=== PATIENT | female | born 1990 | race Hispanic/Latino ===

== ENCOUNTER 2022-08-09 12:46 | Emergency (ER) | payer BC ==
--- OUTSIDE RECORDS SUMMARY | 2022-08-09 12:49 | XMS REPORT | Continuity of Care Document ---
:1990 Author Organization [facility] t Address [address] [place] [place] [address] Care Team Providers Name Role Phone Asked, No Pcp Primary Care Physician Unavailable GC_CCOB_Khan_M Attending Clinician Unavailable MIREYA DUVAL Attending Clinician Unavailable Mireya Kim Attending Clinician MAYELA RAMOS Attending Clinician Unavailable Only, Ang Db Test Attending Clinician Unavailable Mayela Singer Attending Clinician EbrahiBrenda Da Silva Attending Clinician Doctor Unassigned, [place] Attending Clinician Unavailable RADHIKA BURLESON Attending Clinician Unavailable Freedom Connolly Attending Clinician Radhika Burleson MD Attending Clinician SHYANN AWAD Attending Clinician Unavailable Nurse, Pcp Immunization Attending Clinician Unavailable Steve Pacheco DO Attending Clinician STEVE PACHECO Attending Clinician Unavailable EBONY BRITTON Attending Clinician Unavailable BRAEDEN BE Attending Clinician Unavailable STANLEY COLLINS Attending Clinician Unavailable CHEPE CHAVEZ Attending Clinician Unavailable CHENG DE LA CRUZ Attending Clinician Unavailable FEMI POLLARD Attending Clinician Unavailable FRANCO DIAZ Attending Clinician Unavailable MARY LONGO Attending Clinician Unavailable UNKNOWN, ATTENDING Attending Clinician Unavailable GC_CCOB_Khan_M Admitting Clinician Unavailable Payers Payer Name Policy Type Policy Number Effective Date Expiration Date Ashvin campos [place] [id number] 2018 [place] (PP[place] 00:00:00 BCBS OF [id number] 2018 EMPLOYEE PLAN 00:00:00 Problems Condition Condition Condition Status Onset Resolution Last Treating Co mments Source Name Details Category Date Date Treatment Clinician Date No known No known Disease Unive rs active active ity of problems problems [facility] Allergies, Adverse Reactions, Alerts Allergy Allergy Status Severity Reaction(s) Onset Inactive Treating Comm ents Source Name Type Date Date Clinician PENICILL Drug Active Hives 2019-07 Univers INS Class 2-10 ity of 00:00: [place] 00 Medical [place] Penicill Propensi Active Hives 2019-07 Univer s ins ty to 2-10 ity of adverse 00:00: [place] reaction 00 Medical s Branch Penicill Propensi Active Hives 2019-07 Method i ins ty to 2-10 st adverse 00:00: [facility]osp[facility] reaction 00 l s to drug Penicill Propensi Active Hives 2019-07 Method i ins ty to 2-10 st adverse 00:00: [facility]ospita reaction 00 l s to drug Pen[place] Propensi Active Rash 2017-07 Hives Univer s in ty to -02 ity of adverse 00:00: [place] reaction 00 Medical s Branch PENICILL DRUG Active Med Rash 2017-07 Univers IN INGREDI 02 ity of 00:00: [place] 00 Medical Branch Family History Family Member Diagnosis Comments Start Date Stop Date Source Natural mother No Known Problems Met [facility] Natural father No Known Problems Met [facility] Social History Social Habit Start Date Stop Date Quantity Comments Source History SDOH University o f Alcohol Frequency [place] [facility] History SDOH University o f Alcohol Std [place] [facility] Drinks [facility] History SDOH University o f Alcohol Binge [place] [facility] Exposure to 2022-02-28 2022-03-10 Not sure University of SARS-CoV-2 00:00:00 15:35:00 [place] [facility] (event) Branch Alcohol intake 2020-06-12 2020-06-12 Current drinker [facility] dist 00:00:00 00:00:00 of alcohol Hospital (finding) Tobacco use and 2018-05-05 2018-05-05 Smokeless tobacco Un iversity of exposure 00:00:00 00:00:00 non-user [facility] Alcohol Comment 2018-05-05 2018-05-05 Socially Universit y of 00:00:00 00:00:00 [facility] Sex [birth year] At [birth year] [facility] 00:00:00 00:00:00 Hospital Smoking Status Start Date Stop Date Source Never smoked tobacco [facility] Medications Ordered Filled Start Stop Current Ordering Indication Dosage Frequency Signature Comments Components Source Medication Medication Date Date Medication? Clinician (SIG) Name Name doxycycline 2021- No [id number] 100mg Take 1 Univers hyclate 100 3-31 04-11 tablet by it y of mg tablet 00:00[place] 04:59 [place] (two[place] Medical times Branch daily for 10 days. acetaminoph 2021- No 650mg 650 mg, U nivers en 1-25 01-25 Oral, ity of (TYLENOL) 05:45: 05:51 ONCE, 1 [place] tablet 650 00 :00 dose, On Medic al mg Mon Branch 07/27/21 at 2345, KVNG traMADoL Yes [id number] 50mg Take 1 Univers (ULTRAM) 50 1-25 tablet by ity of mg tablet 00:00: mouth [place] 00 every 6 Medical (six) Branch hours as needed for Pain (scale 7-10). Indication s: acute pain ondansetron Yes [id number] 4mg Take 1 Univers (ZOFRAN) 4 1-25 tablet by ity of mg tablet 00:00: mouth [place] 00 every 8 Medical (eight) Branch hours as needed for Nausea and Vomiting (N/V). ketorolac Yes [id number] 10mg Take 1 U nivers 10 mg 1-25 tablet by ity of tablet 00:00: mouth [place] 00 every 6 Medical (six) Branch hours as needed for Pain (scale 7-10). traMADoL 0 Yes [id number] 50mg Take 1 Univers (ULTRAM) 50 1-25 tablet by ity of mg tablet 00:00: mouth [place] 00 every 6 Medical (six) Branch hours as needed for Pain (scale 7-10). Indication s: acute pain ondansetron 2022-0 Yes [id number] 4mg Take 1 Univers (ZOFRAN) 4 1-25 tablet by ity of mg tablet 00:00: mouth [place] 00 every 8 Medical (eight) Branch hours as needed for Nausea and Vomiting (N/V). ketorolac 2022-0 Yes [id number] 10mg Take 1 U nivers 10 mg 1-25 tablet by ity of tablet 00:00: mouth [place] 00 every 6 Medical (six) Branch hours as needed for Pain (scale 7-10). traMADoL 2022-0 Yes [id number] 50mg Take 1 Univers (ULTRAM) 50 1-25 tablet by ity of mg tablet 00:00: mouth [place] 00 every 6 Medical (six) Branch hours as needed for Pain (scale 7-10). Indication s: acute pain ondansetron 2-0 Yes [id number] 4mg Take 1 Univers (ZOFRAN) 4 1-25 tablet by ity of mg tablet 00:00: mouth [place] 00 every 8 Medical (eight) Branch hours as needed for Nausea and Vomiting (N/V). ketorolac 2022-0 Yes [id number] 10mg Take 1 U nivers 10 mg 1-25 tablet by ity of tablet 00:00: mouth [place] 00 every 6 Medical (six) Branch hours as needed for Pain (scale 7-10). traMADoL 2-0 Yes [id number] 50mg Take 1 Univers (ULTRAM) 50 1-25 tablet by ity of mg tablet 00:00: mouth [place] 00 every 6 Medical (six) Branch hours as needed for Pain (scale 7-10). Indication s: acute pain ondansetron 2022-0 Yes [id number] 4mg Take 1 Univers (ZOFRAN) 4 1-25 tablet by ity of mg tablet 00:00: mouth [place] 00 every 8 Medical (eight) Branch hours as needed for Nausea and Vomiting (N/V). ketorolac 2022-0 Yes [id number] 10mg Take 1 U nivers 10 mg 1-25 tablet by ity of tablet 00:00: mouth [place] 00 every 6 Medical (six) Branch hours as needed for Pain (scale 7-10). traMADoL 2022-0 Yes [id number] 50mg Take 1 Univers (ULTRAM) 50 1-25 tablet by ity of mg tablet 00:00: mouth [place] 00 every 6 Medical (six) Branch hours as needed for Pain (scale 7-10). Indication s: acute pain ondansetron 2022-0 Yes [id number] 4mg Take 1 Univers (ZOFRAN) 4 1-25 tablet by ity of mg tablet 00:00: mouth [place] 00 every 8 Medical (eight) Branch hours as needed for Nausea and Vomiting (N/V). ketorolac 2022-0 Yes [id number] 10mg Take 1 U nivers 10 mg 1-25 tablet by ity of tablet 00:00: mouth [place] 00 every 6 Medical (six) Branch hours as needed for Pain (scale 7-10). traMADoL 2022-0 Yes [id number] 50mg Take 1 Univers (ULTRAM) 50 1-25 tablet by ity of mg tablet 00:00: mouth [place] 00 every 6 Medical (six) Branch hours as needed for Pain (scale 7-10). Indication s: acute pain ondansetron 2022-0 Yes [id number] 4mg Take 1 Univers (ZOFRAN) 4 1-25 tablet by ity of mg tablet 00:00: mouth [place] 00 every 8 Medical (eight) Branch hours as needed for Nausea and Vomiting (N/V). ketorolac 2022-0 Yes [id number] 10mg Take 1 U nivers 10 mg 1-25 tablet by ity of tablet 00:00: mouth [place] 00 every 6 Medical (six) Branch hours as needed for Pain (scale 7-10). medroxyprog 2022-0 Yes Take by Uni vers esterone 1-24 mouth. ity of acetate 23:41: [place] (PROVERA 44 Medical ORAL) Branch medroxyprog 2022-0 Yes Take by Uni vers esterone 1-24 mouth. ity of acetate 23:41: [place] (PROVERA 44 Medical ORAL) Branch medroxyprog 2022-0 Yes Take by Uni vers esterone 1-24 mouth. ity of acetate 23:41: [place] (PROVERA 44 Medical ORAL) Branch medroxyprog 2022-0 Yes Take by Uni vers esterone 1-24 mouth. ity of acetate 23:41: [place] (PROVERA 44 Medical ORAL) Branch medroxyprog 2022-0 Yes Take by Uni vers esterone 1-24 mouth. ity of acetate 23:41: [place] (PROVERA 44 Medical ORAL) Branch medroxyprog Yes Take by Uni vers esterone 1-24 mouth. ity of acetate 23:41: [place] (PROVERA 44 Medical ORAL) Branch metFORMIN 2021- No 500mg Take 500 Un terry 500 mg 24 1-24 01-24 mg by ity of hr tablet 23:41: 00:00 mouth 2 [place] 42 :[place] (two) Medical times Branch daily with meals. ibuprofen Yes TAKE ONE Univ ers 600 mg 6-11 (1) ity of tablet 00:00: TABLET(S) [place] 00 BY MOUTH Medical FOUR TIMES Branch A DAY NEEDED FOR PAIN. ibuprofen Yes TAKE ONE Univ ers 600 mg 6-11 (1) ity of tablet 00:00: TABLET(S) [place] 00 BY MOUTH Medical FOUR TIMES Branch A DAY NEEDED FOR PAIN. ibuprofen 2021- No TAKE ONE Uni vers 600 mg 6-11 -24 (1) ity of tablet 00:00: 00:00 TABLET(S) [place] 00 :00 BY MOUTH Medical FOUR TIMES Branch A DAY NEEDED FOR PAIN. LIDOCAINE Yes TAKE FIVE Uni vers VISCOUS 2 % 6-10 (5) ML(S) ity of solution 00:00: BY MOUTH [place] 00 EVERY SIX Medical HOURS Branch NEEDED. LIDOCAINE Yes TAKE FIVE Uni vers VISCOUS 2 % 6-10 (5) ML(S) ity of solution 00:00: BY MOUTH [place] 00 EVERY SIX Medical HOURS Branch NEEDED. LIDOCAINE 2021- No TAKE FIVE Un terry VISCOUS 2 % 6-10 01-24 (5) ML(S) it y of solution 00:00: 00:00 BY MOUTH [place] 00 :00 EVERY SIX Medical HOURS Branch NEEDED. metFORMIN 2019-07 Yes TAKE FOUR Met hodi XR 2-09 (4) st (GLUCOPHAGE 00:00: TABLET(S) H ospita -XR) 500 mg 00 BY MOUTH l 24 hr ONCE A DAY tablet WITH THE EVENING MEAL. metFORMIN 2019-07 Yes TAKE FOUR Met hodi XR 2-09 (4) st (GLUCOPHAGE 00:00: TABLET(S) H ospita -XR) 500 mg 00 BY MOUTH l 24 hr ONCE A DAY tablet WITH THE EVENING MEAL. sumatriptan 2020-0 Yes [id number] 100mg Take 1 Univers (IMITREX) 5-10 tablet by ity o f 100 mg 00:00: mouth as [place] tablet 00 needed for Medical Migraine. Branch meclizine 2020-0 Yes [id number] 32mg Take 1 U nivers 25 mg 5-10 tablet by ity of tablet 00:00: mouth 3 [place] 00 (three) Medical times Branch daily as needed for Dizziness. sumatriptan 2020-0 Yes [id number] 100mg Take 1 Univers (IMITREX) 5-10 tablet by ity o f 100 mg 00:00: mouth as [place] tablet 00 needed for Medical Migraine. Branch meclizine 2020-0 Yes [id number] 32mg Take 1 U nivers 25 mg 5-10 tablet by ity of tablet 00:00: mouth 3 [place] 00 (three) Medical times Branch daily as needed for Dizziness. sumatriptan 2019-0 2021- No [id number] 100mg Take 1 Univers (IMITREX) 5-10 01-24 tablet by ity of 100 mg 00:00: 00:00 mouth as [place] tablet 00 :00 needed for Medical Migraine. Branch meclizine 2019-0 2021- No [id number] 32mg Take 1 Univers 25 mg 5-10 01-24 tablet by ity of tablet 00:00: 00:00 mouth 3 [place] 00 :00 (three) Medical times Branch daily as needed for Dizziness. metFORMIN 2019-0 Yes 500mg Take 500 Uni vers 500 mg 24 6-04 mg by ity of hr tablet 18:32: mouth 2 [place] [id number] (two) Medical times Branch daily with meals. medroxyprog 2019-0 Yes Take by Uni vers esterone 6-04 mouth. ity of acetate 18:32: [place] (PROVERA 12 Medical ORAL) Branch metFORMIN 2019-0 Yes 500mg Take 500 Uni vers 500 mg 24 6-04 mg by ity of hr tablet 13:32: mouth 2 [place] 12 (two) Medical times Branch daily with meals. medroxyprog 2019-0 Yes Take by Uni vers esterone 6-04 mouth. ity of acetate 13:32: [place] (PROVERA 12 Medical ORAL) Branch azithromyci 2019-0 Yes [id number] 250mg Take 1 Univers n 250 mg 6-04 tablet by ity of tablet 00:00: mouth [place] 00 daily. Medical Take 500 Branch mg day 1, then 250 mg days 2 to 5. bromphenira Yes [id number] 5mL Take 5 mL Univers mine-pseudo 6-04 by mouth 4 it y of ephedrine-D 00:00: (four) [place] M (BROMFED 00 times Medical DM) 2-30-10 daily as Bran ch mg/5 mL needed for syrup Cold symptoms or Cough. azithromyci Yes [id number] 250mg Take 1 Univers n 250 mg 6-04 tablet by ity of tablet 00:00: mouth [place] 00 daily. Medical Take 500 Branch mg day 1, then 250 mg days 2 to 5. bromphenira Yes [id number] 5mL Take 5 mL Univers mine-pseudo 6-04 by mouth 4 it y of ephedrine-D 00:00: (four) [place] M (BROMFED 00 times Medical DM) 2-30-10 daily as Bran ch mg/5 mL needed for syrup Cold symptoms or Cough. azithromyci 2021- No [id number] 250mg Take 1 Univers n 250 mg 6-04 -24 tablet by ity o f tablet 00:00: 00:00 mouth [place] 00 :00 daily. Medical Take 500 Branch mg day 1, then 250 mg days 2 to 5. bromphenira 2021- No [id number] 5mL Take 5 mL Univers mine-pseudo 6-04 -24 by mouth 4 i ty of ephedrine-D 00:00: 00:00 (four) [place] M (BROMFED 00 :00 times Medical DM) 2-30-10 daily as Bran ch mg/5 mL needed for syrup Cold symptoms or Cough. Immunizations Ordered Filled Immunization Date Status Comments [facility] e Immunization Name Name SARS-COV-2 COVID-19 2021-03-05 Completed Unive rsity of PFIZER VACCINE 00:00:00 [facility] SARS-COV-2 COVID-19 2021-03-05 Completed Unive rsity of PFIZER VACCINE 00:00:00 [facility] SARS-COV-2 COVID-19 2021-03-05 Completed Unive rsity of PFIZER VACCINE 00:00:00 [facility] SARS-COV-2 COVID-19 2021-03-05 Completed Unive rsity of PFIZER VACCINE 00:00:00 [facility] SARS-COV-2 COVID-19 2021-03-05 Completed Unive rsity of PFIZER VACCINE 00:00:00 [facility] SARS-COV-2 COVID-19 2021-03-05 Completed Unive rsity of PFIZER VACCINE 00:00:00 [facility] SARS-COV-2 COVID-19 2021-03-05 Completed Unive rsity of PFIZER VACCINE 00:00:00 [facility] SARS-COV-2 COVID-19 2021-03-05 Completed Unive rsity of PFIZER VACCINE 00:00:00 [facility] SARS-COV-2 COVID-19 2021-02-06 Completed Unive rsity of PFIZER VACCINE 00:00:00 [facility] SARS-COV-2 COVID-19 2021-02-06 Completed Unive rsity of PFIZER VACCINE 00:00:00 [facility] SARS-COV-2 COVID-19 2021-02-06 Completed Unive rsity of PFIZER VACCINE 00:00:00 [facility] SARS-COV-2 COVID-19 2021-02-06 Completed Unive rsity of PFIZER VACCINE 00:00:00 [facility] SARS-COV-2 COVID-19 2021-02-06 Completed Unive rsity of PFIZER VACCINE 00:00:00 [facility] SARS-COV-2 COVID-19 2021-02-06 Completed Unive rsity of PFIZER VACCINE 00:00:00 [facility] SARS-COV-2 COVID-19 2021-02-06 Completed Unive rsity of PFIZER VACCINE 00:00:00 [facility] SARS-COV-2 COVID-19 2021-02-06 Completed Unive rsity of PFIZER VACCINE 00:00:00 [facility] Influenza Virus 2018-05-05 Completed Universit y of Vaccine Quad .5 mL 00:00:00 [place] [facility] IM 6+ MO Branch Influenza Virus 2018-05-05 Completed Universit y of Vaccine [place] .5 mL 00:00:00 [place] [facility] IM 6+ MO Branch Influenza Virus 2018-05-05 Completed Universit y of Vaccine [place] .5 mL 00:00:00 [place] [facility] IM 6+ MO Branch Influenza Virus 2018-05-05 Completed Universit y of Vaccine [place] .5 mL 00:00:00 [place] [facility] IM 6+ MO Branch Influenza Virus 2018-05-05 Completed Universit y of Vaccine [place] .5 mL 00:00:00 [place] [facility] IM 6+ MO Branch Influenza Virus 2018-05-05 Completed Universit y of Vaccine [place] .5 mL 00:00:00 [place] [facility] IM 6+ MO Branch Influenza Virus 2018-05-05 Completed Universit y of Vaccine [place] .5 mL 00:00:00 [place] [facility] IM 6+ MO Branch Influenza Virus 2018-05-05 Completed Universit y of Vaccine [place] .5 mL 00:00:00 [facility] IM 6+ MO Branch TDAP (ADACEL) 2015-02-01 Completed University of VACCINE 00:00:00 [facility] TDAP (ADACEL) 2015-02-01 Completed University of VACCINE 00:00:00 [facility] TDAP (ADACEL) 2015-02-01 Completed University of VACCINE 00:00:00 [facility] TDAP (ADACEL) 2015-02-01 Completed University of VACCINE 00:00:00 [facility] TDAP (ADACEL) 2015-02-01 Completed University of VACCINE 00:00:00 [facility] TDAP (ADACEL) 2015-02-01 Completed University of VACCINE 00:00:00 [facility] TDAP (ADACEL) 2015-02-01 Completed University of VACCINE 00:00:00 [facility] TDAP (ADACEL) 2015-02-01 Completed University of VACCINE 00:00:00 [facility] Vital Signs Vital Name Observation Time Observation Value Comments Source Systolic blood 2022-03-10 21:43:00 113 mm[Hg] Univer sity of pressure [facility] Diastolic blood 2022-03-10 21:43:00 83 mm[Hg] Unive rsity of pressure [facility] Heart rate 2022-03-10 21:43:00 101 /min [facility] Body temperature 2022-03-10 21:43:00 36.89 Radha [facility] Respiratory rate 2022-03-10 21:43:00 18 /min [facility] Body height 2022-03-10 21:43:00 175.3 cm [facility] Body weight 2022-03-10 21:43:00 117.3 kg [facility] [place] [facility] BMI 2022-03-10 21:43:00 38.19 kg/m2 Universi ty [facility] [place] [facility] Oxygen saturation in 2022-03-10 21:43:00 99 /min University of Arterial blood by [facility] catrachita Pulse oximetry Branch Systolic blood 2021-10-01 20:30:00 129 mm[Hg] Univer sity of pressure [place] [facility] Diastolic blood 2021-10-01 20:30:00 75 mm[Hg] Unive rsity of pressure [place] [facility] Heart rate 2021-10-01 20:30:00 95 /min [facility]i [facility] [place] [facility] Body temperature 2021-10-01 20:30:00 36.17 Radha Univ ersity of [place] [facility] Respiratory rate 2021-10-01 20:30:00 18 /min Univ ersity of [place] [facility] Body height 2021-10-01 20:30:00 176.5 cm [facility] [place] [facility] Body weight 2021-10-01 20:30:00 117.754 kg [facility]i [facility] [place] [facility] BMI 2021-10-01 20:30:00 37.79 kg/m2 [facility] [place] [facility] Oxygen saturation in 2021-10-01 20:30:00 97 /min University of Arterial blood by [facility] Pulse oximetry Branch Systolic blood 2021-07-28 07:34:00 136 mm[Hg] Univer sity of pressure [place] [facility] Diastolic blood 2021-07-28 07:34:00 80 mm[Hg] Unive rsity of pressure [place] [facility] Heart rate 2021-07-28 07:34:00 104 /min [facility]i ty [facility] [place] [facility] Body temperature 2021-07-28 07:34:00 37 Radha Univ ersity of [place] [facility] Respiratory rate 2021-07-28 07:34:00 16 /min Univ ersity of [place] [facility] Oxygen saturation in 2021-07-28 07:34:00 94 /min University of Arterial blood by [facility] Pulse oximetry Branch Body height 2021-07-28 05:39:00 175.3 cm [facility] [place] [facility] Body weight 2021-07-28 05:39:00 113.399 kg [facility]i [facility] [place] [facility] BMI 2021-07-28 05:39:00 36.92 kg/m2 [facility] Procedures Procedure Date / Time Performed Performing Clinician Sourc e POCT MOLECULAR STREP 2022-03-10 21:48:00 Mireya Duval [facility] CONSENT/REFUSAL FOR 2021-10-01 20:20:52 Doctor Unassigned, No Un iversity of [place] DIAGNOSIS AND [facility] Medical Branch TREATMENT ASSIGNMENT OF BENEFITS 2021-10-01 20:20:44 Doctor Unassigned, No [facility] Medical Branch COVID-19 (ID NOW RAPID 2021-07-28 05:55:00 Radhika Burleson [facility] TESTING) Medical Branch NOTICE OF PRIVACY 2021-07-28 05:17:28 Doctor Unassigned, No [facility] Medical Branch CONSENT/REFUSAL FOR 2021-07-28 05:17:12 Doctor Unassigned, No Un iversity of [place] DIAGNOSIS AND [facility] TREATMENT SARS-COV-2 COVID-19 2021-03-05 22:00:55 Doctor Unassigned, No Un iversity [facility] VACCINE,0.3ML,IM [facility] (PFIZER) Plan of Care Planned Activity Planned Date Details Comments Source Future Scheduled 2022-06-28 [facility]ening for [facility] Test 04:56:33 malignant neoplasm of cervix (procedure) [code = 198481733] Future Scheduled 2022-06-28 [facility] 04:56:33 (#1) [code = COVID-19 VACCINE (#1)] Future Scheduled 2022-06-28 INFLUENZA VACCINE [facility] Test 04:56:33 [code = INFLUENZA VACCINE] Future Scheduled 2021-08-04 INFLUENZA VACCINE [facility] Test 23:43:07 [code = INFLUENZA VACCINE] Future Scheduled 2021-08-04 [facility] for [facility] Test 23:43:07 malignant neoplasm of cervix (procedure) [code = 724864402] Future Scheduled 2021-08-04 COVID-19 [facility]ACCINE [facility] Test 23:43:07 (1) [code = COVID-19 VACCINE (1)] Encounters Start End Encounter Admission Attending Care Care Encounter Source Date/Time Date/Time Type Type Clinicians Facility Department ID 2022-07-15 2022-07-15 Outpatient GC_CCOB_Kha PRIV PRIV [id number] [facility] 00:00:00 00:00:00 n_M [id number] Medica l 2022-07-13 2022-07-13 Outpatient GC_CCOB_Kha PRIV PRIV [id number] [facility] 00:00:00 00:00:00 n_M [id number] Medica l 2022-06-08 2022-06-08 Outpatient GC_CCOB_Kha PRIV PRIV [id number] [facility] 00:00:00 00:00:00 n_M [id number] Medica l 2022-06-08 2022-06-08 Outpatient GC_CCOB_Kha PRIV PRIV [id number] [facility] 00:00:00 00:00:00 n_M [id number] Medica l 2022-06-08 2022-06-08 Outpatient GC_CCOB_Kha PRIV PRIV [id number] [facility] 00:00:00 00:00:00 n_M [id number] Medica l 2022-05-14 2022-05-14 Outpatient GC_CCOB_Kha PRIV PRIV [id number] [facility] 00:00:00 00:00:00 n_M [id number] Medica l 2022-05-10 2022-05-10 Outpatient GC_CCOB_Kha PRIV PRIV [id number] [facility] 00:00:00 00:00:00 n_M [id number] Medica l 2022-04-30 2022-04-30 Outpatient GC_CCOB_Kha PRIV PRIV [id number] [facility] 00:00:00 00:00:00 n_M [id number] Medica l 2022-03-10 2022-03-10 Outpatient Kaylan DUVAL [facility] [id number] Univers 16:40:00 17:02:31 MIREYA murillo [facility] 2022-03-10 2022-03-10 [facility] [id number] Univers 16:40:00 17:00:00 Care [facility] [id number] i ty of HOPE [id number] [place] as SARAHI?BLEA [id number] [address] MEDICAL OFFICE [facility] 2022-03-10 2022-03-10 Outpatient R MUKUND [facility] [id number] Univers 16:20:00 16:20:00 MIREYA ity o f [facility] 2021-12-10 2021-12-10 Outpatient R RICHARD [facility] [id number] Univers 16:00:00 16:15:57 MAYELA ity [facility] 2021-12-10 2021-12-10 Terrazzo Supervisor Only, Ang Db Test [facility] 1.2.8 [id number] [id number] Univers 16:00:00 16:15:00 Visit Richard Mayela [facility] [id number] [facility] [id number] [place] as SARAHI?BLEA [id number] [address] OFFICE [facility] 2021-10-01 2021-10-01 Urgent Brenda Enamorado [facility] [id number] Univers 15:20:00 15:40:00 Care Richard Mayela [employer] [id number] ity of [place] 4.2.7.2.686 [place] as SARAHI?BLEA [id number] [address] OFFICE [facility] 2021-10-01 2021-10-01 Outpatient R RICHARD [facility] [id number] Univers 15:20:00 15:20:00 MAYELA ity [facility] 2021-10-01 2021-10-01 Orders Doctor BOOTHE [id number] Univers 00:00:00 00:00:00 Only Unassigned, RONAL [id number] ity of [place] [facility] [id number] [place] as [id number] [address] 2021-08-01 2021-08-01 Laboratory Only, Ang Db Test [facility] 1.2.8 40.114 [id number] Univers 10:30:00 10:45:00 Only Green, Mayela HEALTH [id number] ity of [place] [id number] [place] as SARAHI?BLEA [id number] [place] [address] [place] MEDICAL OFFICE BUILDING 2021-08-01 2021-08-01 Outpatient R RICHARD [facility] [id number] Univers 10:30:00 10:30:00 [facility] 2021-07-28 Emergency X AMAN [facility] ERT [id number] Univers 23:42:00 01:35:00 WAKILI ity [facility] 2021-07-27 2021-07-28 Emergency [place] [facility] [id number]. [id number] Univers 23:42:00 01:35:00 Radhika Burleson HOPE [id number] ity of [id number] [phone] [facility] [address] [place] 2021-07-27 2021-07-27 Orders Doctor SHYANN [id number] Univers 00:00:00 00:00:00 Only Unassigned, RONAL [id number] [facility] [id number] [place] [phone] [facility] [address] 2021-06-28 2021-06-28 Outpatient Kaylan AWAD [facility] [id number] Univers 20:15:00 20:15:00 SHYANN [facility] 2021-03-05 2021-03-05 Imm/Inj Nurse, Pcp Immunization [facility] 1. [id number] Univers 16:57:57 17:07:57 Visit Steve Pacheco PRIMARY [id number] 10 ity of [facility] [id number] [facility] [phone] [place] danielle [address] [place] 2021-03-05 2021-03-05 Outpatient [facility] [id number] Univers 17:00:00 17:00:00 ity of [facility] 2021-02-27 2021-02-27 Outpatient Kaylan PACHECO [facility] [id number] Univers 07:30:00 07:30:00 STEVE mejia [facility] 2021-02-15 2021-02-15 Outpatient Kaylan BRITTON [facility] [id number] Univers 09:00:00 09:00:00 EBONY [facility] 2021-02-13 2021-02-13 Outpatient R [place], [facility] [id number] Univers 08:30:00 08:30:00 BRAEDEN [facility] 2021-02-06 2021-02-06 Outpatient R [facility] [id number] Univers 07:30:00 07:30:00 [facility] 2021-02-03 2021-02-03 Outpatient [facility] [id number] Univers 07:40:00 07:40:00 [facility] 2021-01-23 2021-01-23 Outpatient R [facility] [id number] Univers 19:40:00 19:40:00 [facility] 2020-11-15 2020-11-15 Outpatient Kaylan RAMOS, [facility] [id number] Univers 15:40:00 15:40:00 MAYELA [facility] 2020-08-04 2020-08-04 Outpatient R KARINA, [facility] [id number] Univers 09:00:00 09:00:00 STANLEY [facility] 2020-07-17 2020-07-17 Outpatient Kaylan CHAVEZ, [facility] [id number] [facility]:45[facility] 2020-06-12 Outpatient [facility] [id number] [place] 00:00:00 00:00:00 CHENG [address] 2020-06-12 2020-06-12 [facility] [id number] [place] 00:00:00 00:00:00 CHENG [address] 2020-05-20 2020-05-20 Outpatient Kaylan CHAVEZ [facility] [id number] Univers 08:00:00 08:00:00 [facility] 2020-01-29 2020-01-29 Outpatient Kaylan CHAVEZ [facility] [id number] Univers 10:45:00 10:45:00 [facility] 2019-12-31 2019-12-31 Out[facility] R LATRICE, [facility] [id number] Univers 08:45:00 08:45:00 FEMI [facility] 2019-11-14 2019-11-14 Outpatient R JOE [facility] [id number] Univers 13:45:00 13:45:00 FRANCO [facility] 2019-11-14 2019-11-14 Outpatient R JOE [facility] [id number] Univers 13:45:00 13:45:00 FRANCO [facility] 2019-11-11 2019-11-11 Outpatient R MARY LONGO [facility] [id number] Univers 11:40:00 11:40:00 [facility] 2019-11-08 2019-11-08 Outpatient R UNKNOWN, [facility] [id number] Univers 08:45:00 08:45:00 ATTENDING [facility] 2019-11-06 2019-11-06 Outpatient R UNKNOWN, [facility] [id number] Univers 13:15:00 13:15:00 ATTENDING [facility] 2019-11-02 2019-11-02 Outpatient R CHAVEZ, [facility] [id number] Univers 08:00:00 08:00:00 CHEPE [facility] 2019-09-24 2019-09-24 Outpatient R [facility] [id number] Univers 17:00:00 17:00:00 [facility] Results Test Description Test Time Test Comments Results Result Comments Source POCT MOLECULAR STREP 2022-03-10 21:56:05 Test Item Value Reference Range Interpretation Comme nts POCT Molecular Strep (test code = 71755-1) Negative Negative Lab Interpretation (test code = 44106-4) Normal [facility]
[2022-08-09 13:52] LABS: Absolute Lymphocytes (CBC) 2.7 K/uL (0.7-4.9); Lymphocytes % 26.3 % (15.3-44.8); MCV 87.6 fL (80-100); MPV 6.8 fL (7.6-11.3); RBC Red Blood Cell Count 4.57 M/uL (3.86-4.86)
[2022-08-09 14:00] LABS: Urine Blood Negative (Negative); Urine Glucose Negative (Negative); Urine Protein Negative (Negative); Urine Specific Gravity 1.025 (1.005-1.030); Urine pH 5.5 (5.0-7.0)
[2022-08-09 14:09] LABS: Potassium 3.2 mmol/L (3.5-5.1)
[2022-08-09 14:20] LABS: Thyroid Stimulating Hormone 1.12 uIU/mL (0.358-3.740)
[2022-08-09 15:28] LABS: Urine Specific Gravity/Preg 1.025 (1.005-1.030)
[2022-08-09] MEDS ORDERED: METOCLOPRAMIDE 10 MG/2mL INJ ONE (15:34)
[2022-08-09] MEDS ORDERED: NA CHLORIDE 0.9% 1,000 ML ONE (15:35)
[2022-08-09] MEDS ORDERED: KETOROLAC 30 MG/ML INJ ONE (15:35)
--- NOTE | 2022-08-09 15:44 | ER ---
Nurse's Notes [facility] Name: Nasima Johnston Age: 32 yrs Sex: Female : 1990 Arrival Date: 08/09/2022 Time: 12:56 Bed 15 Private MD: Diagnosis: Tachycardia, unspecified;Migraine without aura, not intractable Presentation: 08/09 14:14 Chief complaint: Patient states: sudden onset of high heart rate that began while ss watching TV this morning. Coronavirus screen: Client denies travel out of the [place] in the last 14 days. Ebola Screen: Patient denies exposure to infectious person. Patient denies travel to an Ebola-affected area in the 21 days before illness onset. Initial Sepsis Screen: Does the patient meet any 2 criteria? No. Patient's initial sepsis screen is negative. Does the patient have a suspected source of infection? No. Patient's initial sepsis screen is negative. Risk Assessment: Do you want to hurt yourself or someone else? Patient reports no desire to harm self or others. Onset of symptoms was August 09, 2022. 14:14 Method Of Arrival: Ambulatory ss 14:14 Acuity: REBECA 3 ss Historical: - Allergies: 14:15 PENICILLINS; rash; ss - Home Meds: 14:15 None [Active]; ss - PMHx: 14:15 None; ss - PSHx: 14:15 None; ss - Immunization history:: Client reports receiving the 2nd dose of the Covid vaccine. - Social history:: Smoking status: Patient denies any tobacco usage or history of. Screenin:38 [facility] ED Fall Risk Assessment (Adult) History of falling in the last 3 months, jh5 including since admission No falls in past 3 months (0 pts). Abuse screen: Denies threats or abuse. Denies injuries from another. Nutritional screening: No deficits noted. Tuberculosis screening: No symptoms or risk factors identified. Vital Signs: 14:14 BP 135 / 86; Pulse 113; Resp 16; Temp 98.2(TE); Pulse Ox 99% on R/A; Weight 113.4 kg; ss Height 5 ft. 9 in. (175.26 cm); Pain 0/10; 15:39 BP 138 / 94; Pulse 100; Resp 16; Pulse Ox 98% ; jh5 14:14 Body Mass Index 36.92 (113.40 kg, 175.26 cm) ED Course: 12:56 Patient arrived in ED. mr 13:21 Ulysses Childs MD is Attending Physician. bs3 13:54 TSH Sent. em1 13:54 BMP Sent. em1 14:15 Triage completed. ss 14:15 Arm band placed on right wrist. ss 15:38 No provider procedures requiring assistance completed. jh5 15:38 Patient has correct armband on for positive identification. Bed in low position. Call 5 light in reach. Side rails up X 1. 16:29 IV discontinued, intact, bleeding controlled, No redness/swelling at site. Pressure jh5 dressing applied. Administered Medications: 15:37 Drug: Reglan (metoCLOPramide) 10 mg Route: IVP; Site: right antecubital; jh5 15:37 Drug: Ketorolac 10 mg 10 mg Route: IVP; Site: right antecubital; jh5 15:38 Drug: NS 0.9% 1000 ml Route: IV; Rate: 1000 ml; Site: right antecubital; 5 Medication: 15:39 VIS not applicable for this client. jh5 Outcome: 15:43 Discharge ordered by . bs3 16:29 Discharged to home ambulatory. jh5 16:29 Condition: good 16:29 Discharge instructions given to patient, Instructed on discharge instructions, follow up and referral plans. medication usage, safety practices, Demonstrated understanding of instructions, follow-up care, medications. 16:30 Patient left the ED. 5 Signatures: Oh Anna Perez, Abdias em1 Arline Arredondo RN RN Mya Dasilva RN RN 5 Ulysses Childs MD MD bs3
--- NOTE | 2022-08-09 15:44 | EDPHYS ---
Physician Documentation [facility] Name: Nasima Johnston Age: 32 yrs Sex: Female : 1990 Arrival Date: 08/09/2022 Time: 12:56 Bed 15 Private MD: ED Physician Ulysses Childs HPI: 08/09 13:28 This 32 yrs old Female presents to ER via Unassigned with complaints of bs3 tachycardia. 13:28 32-year-old female hx of pcos, migraines pw tachycardia, anxiousness this mroning. It bs3 started at rest, never had it before. She was sitting and resting when it started. No cp. She checked her pulse with a pulse o2 and it was 150 then 170 and she called ems. They did an ecg, vagal maneuver per the pt and brought her here. She notes feeling slightly better since arrival review of systems she notes she had a migraine that started this morning similar to her prior migraines it is a headache on her right side behind her right eye. Historical: - Allergies: 14:15 PENICILLINS; rash; ss - Home Meds: 14:15 None [Active]; ss - PMHx: 14:15 None; ss - PSHx: 14:15 None; ss - Immunization history:: Client reports receiving the 2nd dose of the Covid vaccine. - Social history:: Smoking status: Patient denies any tobacco usage or history of. ROS: 13:28 Constitutional: Negative for fever, chills Eyes: Negative for injury, pain, redness, bs3 and discharge. 13:28 All other systems are negative. Exam: 13:28 Constitutional: This is a well developed, well nourished patient who is awake, alert, bs3 and in no acute distress but slightly anxiosu Head/Face: Normocephalic, atraumatic. Eyes: Pupils equal round and reactive to light, extra-ocular motions intact. Lids and lashes normal. ENT: mmm, no posterior phyarngeal erythema Neck: Trachea midline, no thyromegaly, no neck stiffness Chest/axilla: Normal chest wall appearance and motion. Nontender with no deformity. No lesions are appreciated. Cardiovascular: tachycardic, no murmur Respiratory: Lungs have equal breath sounds bilaterally, clear to auscultation, no respiratory distress Skin: Warm, dry with normal turgor. Normal color with no rashes, no lesions, and no evidence of cellulitis. MS/ Extremity: Pulses equal, no cyanosis. Neurovascular intact. Full, normal range of motion. Neuro: Awake and alert, GCS 15, oriented to person, place, time, and situation. Cranial nerves II-XII grossly intact. Motor strength 5/5 in all extremities. Sensory grossly intact. Psych: Awake, alert, with orientation to person, place and time. Behavior, mood, and affect are within normal limits. Vital Signs: 14:14 BP 135 / 86; Pulse 113; Resp 16; Temp 98.2(TE); Pulse Ox 99% on R/A; Weight 113.4 kg; ss Height 5 ft. 9 in. (175.26 cm); Pain 0/10; 15:39 BP 138 / 94; Pulse 100; Resp 16; Pulse Ox 98% ; jh5 14:14 Body Mass Index 36.92 (113.40 kg, 175.26 cm) ss MDM: 13:21 Patient medically screened. bs3 13:28 Differential Diagnosis possible svt, sinus tach, doubt vtach, possible pe but no risk bs3 factors, possible stress, possible thyroid dysfunction, anxiety or pain, will get ecg and reassess, pt with verde similar to prior verde, will give headache cocktail and reassess. . 15:42 Data reviewed: vital signs, nurses notes. Independent interpretation of the following bs3 test(s) in the Emergency Department EKG: See my EKG interpretation above Rhythm Strip Interpretation Rate: 95 nsrBPM. ED course: Patient reassessed she is feeling much better her initial EKG showed sinus tachycardia at [address] elevations or depressions QTc normal no arrhythmia her work-up was nondiagnostic unclear etiology of symptoms advised follow-up with her primary care and return precautions for recurrent symptoms. 08/09 13:27 Order name: CBC with Diff; Complete Time: 15:22 bs3 08/09 13:27 Order name: BMP; Complete Time: 15:22 bs3 08/09 13:27 Order name: TSH; Complete Time: 15:22 bs3 08/09 14:00 Order name: Urine Dipstick-Ancillary; Complete Time: 15:22 EDMS 08/09 14:03 Order name: Urine --Ancillary (enter results); Complete Time: 15:38 bd 08/09 13:27 Order name: EKG - Nurse/Tech; Complete Time: 13:54 bs3 08/09 13:27 Order name: Urine Test (obtain specimen); Complete Time: 14:00 bs3 Administered Medications: 15:37 Drug: Reglan (metoCLOPramide) 10 mg Route: IVP; Site: right antecubital; [facility] 15:37 Drug: Ketorolac 10 mg 10 mg Route: IVP; Site: right antecubital; [facility] 15:38 Drug: NS 0.9% 1000 ml Route: IV; Rate: 1000 ml; Site: right antecubital; 5 Disposition Summary: 08/09/22 15:43 Discharge Ordered Location: Home bs3 Problem: new bs3 Symptoms: are resolved bs3 Condition: Stable bs3 Diagnosis - Tachycardia, unspecified bs3 - Migraine without aura, not intractable bs3 Followup: bs3 - With: Private Physician - When: 2 - 3 days - Reason: Re-evaluation by your physician Discharge Instructions: - Discharge Summary Sheet bs3 - Sinus Tachycardia bs3 Forms: - Medication Reconciliation Form bs3 - Thank You Letter bs3 - Antibiotic Education bs3 - Work release form bs3 - Prescription Opioid Use bs3 Signatures: Dispatcher [employer] Arline Matias RN RN Mya Dasilva RN RN jh5 Ulysses Childs MD MD bs3
[2022-08-09 16:35] VITALS: TEMP 98.2
[2022-08-09 16:36] VITALS: BP 138/94; O2SAT 98
== END 2022-08-09 16:30 | disposition home or self-care (01) ==
LOC: ER 12:46
DX: R00.0 Tachycardia, unspecified (principal); G43.009 Migraine without aura, not intractable, without status migrainosus; Z88.0 Allergy status to penicillin
CPT/HCPCS: 85025; 80048; 36415; 81025; 84443; 81003; J2765; J7030; 93005